=== PATIENT | male | born 1980 | race Caucasian/White ===

== ENCOUNTER → 2020-07-06 15:14 | Outpatient (CLI) | payer OTHER, SELFPAY | PROVIDERS: PCP Nurse Practitioner Family; Referring Provider Surgery; Visit Provider Surgery | DX: Z01.812 Encounter for preprocedural laboratory examination (principal) | CPT/HCPCS: 87635; C9803; U0005; U0003 ==

== ENCOUNTER → 2020-07-24 11:17 | Outpatient (CLI) | payer OTHER, SELFPAY ==
--- NOTE | 2020-07-24 11:20 | VDLE_ITS ---
Reason For Study: Leg pain Procedure LEFT This is a venous duplex using B-mode, color CFV is compressible, spontaneous, phasic, flow and spectral Doppler. competent, and demonstrates normal Exam performed in department. augmentation. A preliminary report was called and/or faxed FV is compressible, spontaneous, phasic, to Jaqueline. competent and demonstrates normal augmentation. POP V is compressible, spontaneous, phasic, competent and demonstrates normal augmentation. T/P Trunk is compressible. PTV is compressible. LT PerV is compressible. GSV and SSV are occluded s/p EVLA. Interpretation Summary Deep veins of the left lower extremity are patent and compressible segmentally. There is no evidence of left lower extremity deep vein thrombosis. Valvular competence appears intact within the proximal deep venous system on the left . The left great saphenous vein and small saphenous vein are occluded, consistent with a recent endothermal ablation procedure. Ordering Physician: Pako Parsons Referring Physician: Saloni Kamara Performed By: Barbara Rothman RVT
== END ==
PROVIDERS: PCP Nurse Practitioner Family; Referring Provider Surgery; Visit Provider Surgery
DX: M79.605 Pain in left leg (principal)
CPT/HCPCS: 93971